=== PATIENT | female | born 1950 | race Caucasian/White ===

== ENCOUNTER 2022-12-12 18:56 | Emergency (ER) | payer OTHER, MEDICARE ==
[2022-12-12] MEDS ORDERED: Lidocaine 1% (PF) 30 ML VIAL ONE (19:18)
[2022-12-12] MEDS ORDERED: Boostrix 0.5 ML (Tdap) VIAL (>/=7 yrs of age) ONE (19:25)
[2022-12-12] MEDS ORDERED: Amoxicillin/Potassium Clav 875 MG TAB ONE (19:53)
== END 2022-12-12 19:58 | disposition home or self-care (01) ==
LOC: BURERS 18:56
DX: S41.152A Open bite of left upper arm, initial encounter (principal); S41.151A Open bite of right upper arm, initial encounter; S81.852A Open bite, left lower leg, initial encounter; S81.851A Open bite, right lower leg, initial encounter; E78.00 Pure hypercholesterolemia, unspecified; Z23 Encounter for immunization; W54.0XXA Bitten by dog, initial encounter
CPT/HCPCS: 12001; 90471; 90715; J2001